=== PATIENT | female | born 1965 | race Caucasian/White ===

== ENCOUNTER 2016-06-23 08:10 | Outpatient (CLI) ==
[2014-01-02 13:27] VITALS: BMI 36.8
[2016-06-23 09:10] LABS: CREATININE 0.76 mg/dL (0.60-1.30)
--- NOTE | 2016-06-24 09:31 | MRI ---
EXAM: Lumbar spine MRI with and without intravenous contrast. HISTORY: Lumbar disc disease. COMPARISON: Lumbar spine radiographs 06/10/2011 and lumbar spine MRI 03/09/2011. TECHNIQUE: Multiplanar, multisequence MR images were acquired of the lumbar spine before and after administration of intravenous contrast. FINDINGS: Five lumbar-type vertebra are present. There is mild accentuation of the usual lumbar lo rdosis and there is 1.5 mm retrolisthesis of L2 on L3, L4 on L5 and 1.0 mm anterolisthesis of L5 on S1. The pars interarticularis are not well seen and there are probable bilateral L5 pars defects. The lumbar vertebra are normal in height and intrinsic bone marrow signal. Small ventral and latera l osteophytes are present in the lumbar spine and there are benign intraosseous hemangiomas at L2 an d L5. There is disc desiccation at L4-5 and L5-S1. Conus medullaris ends at L1-2 and has normal si gnal intensity. There is no abnormal leptomeningeal contrast enhancement. The visualized liver, spleen and kidneys are unremarkable. There are no paravertebral masses. There is mild atrophy of the inferior right psoas muscle unchanged from previously. Metallic artifact is present in the right retroperitoneum and along the right psoas muscle suggestive of a previous righ t lymph node dissection. T12-L1: The intervertebral disc is normal. L1-2: There is minor disc bulge with a small central enhancing annular fissure. L2-3: There is a minor disc bulge and a small central enhancing annular fissure. Mild bilateral fa cet hypertrophy is present. There is no central canal stenosis or foraminal stenosis. L3-4: There is a minor disc bulge that is asymmetric to the left with small right far lateral, cent ral and left lateral and far lateral enhancing annular fissures. There is mild bilateral facet hype rtrophy and mild left neural foraminal stenosis which is new compared to previously. L4-5: There is a minor disc bulge with a central and left paracentral enhancing annular fissure. T he small left paracentral disc protrusion noted previously is no longer identified. There is mild bi lateral hypertrophic facet arthropathy and ligamentum flavum hypertrophy. There is no central canal stenosis or foraminal stenosis. L5-S1: There is mild disc bulge that is asymmetric to the left with a tiny central disc protrusion and small central enhancing annular fissure. There is no central canal stenosis. Minor left neural foraminal stenosis is present. IMPRESSION: 1. Minor lumbar degenerative spondylosis without central canal stenosis. 2. 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 3. Tiny central disc protrusion and enhancing annular fissure L5-S1.
== END 2016-06-23 08:11 | disposition home or self-care (01) ==
LOC: RAD 08:10
PROVIDERS: ATTEND Pain Medicine Interventional Pain Medicine
DX: M51.16 Intervertebral disc disorders with radiculopathy, lumbar region (principal)
CPT/HCPCS: 36415; 82565

== ENCOUNTER 2016-09-22 08:49 | Outpatient (CLI) ==
[2014-01-02 13:27] VITALS: BMI 36.8
--- NOTE | 2016-09-24 09:42 | HOLTER ---
PATIENT INFORMATION AND COMMENTS Indications: PALPITATIONS __ Patient Medications: FLEXORIL, HYDROCODONE, RANITINE, PAMELOR, OMEPRAZOLE __ Pre-procedure Summary: Protocol: Standard Heart Rate Started: 09/22/16908 Minimum: 79 BPM Weight: 216 LBS Ended: 09/23/16904 Maximum: 150 BPM Height: 65" Duration: 24 HOURS Average: 112 _ INTERPRETATIONS/OBSERVATIONS: 1. BASIC RHYTHM: SINUS RATE 80/MINUTE TO 140/MINUTE, AVERAGE 110/MINUTE (MOSTLY SINUS TACHYCARDIA) 2. FEW PAC'S AND RARE PVC'S 3. ONE RUN OF 4 BEAT SUPRAVENTRICULAR TACHYCARDIA 4. NO ST-T WAVE CHANGES FROM BASELINE 5. NO CORRELATION WITH ACTIVITY LOG MTDD
== END 2016-09-22 08:50 | disposition home or self-care (01) ==
LOC: CAR 08:49
PROVIDERS: ATTEND Family Medicine
DX: R00.2 Palpitations (principal)
CPT/HCPCS: 93005; 93010; 93224

== ENCOUNTER 2017-01-22 18:58 | Emergency (ER) ==
[2017-01-22 19:05] VITALS: BP 130/83; TEMP 98.7; BMI 37.8
--- NOTE | 2017-01-22 19:59 | DI ---
EXAM: Right knee, four views. HISTORY: Right knee pain. COMPARISON: None. FINDINGS: AP , oblique, sunrise and lateral views of the right knee. There are no acute or healin g fractures. There are no lytic or blastic lesions. There is no joint effusion. Soft tissues are normal. No significant degenerative changes are seen. IMPRESSION: Normal right knee.
--- NOTE | 2017-01-22 20:00 | DI ---
EXAM: Left wrist, three view. HISTORY: Left wrist pain. Fall. COMPARISON: None. FINDINGS: AP, lateral oblique views of the left wrist. There is a well corticated fragment bone dis will to the ulnar styloid. This does not have the typical appearance of a fracture. There are no acu te or healing fractures. There are no lytic or blastic lesions. Soft tissues are normal. Bone mine ralization is normal. No significant degenerative changes. IMPRESSION: Probable old fracture fragment or unfused apophysis distal to the ulnar styloid. No de finite acute fractures are seen.
--- NOTE | 2017-01-22 20:04 | CT ---
EXAM: CT of the chest without contrast. HISTORY: Fall. Pain. PROCEDURE: Contiguous axial CT images of the chest without contrast with multiplanar and 3-D reform ats. FINDINGS: The heart is within normal limits in size. The thoracic aorta is within normal limits in diameter. The mediastinum is normal in appearance. There is minimal right middle lobe and lingular atelectasis. No pneumothorax. There is a calcified granuloma in the left lower lobe. There are gal lstones and/or sludge in the gallbladder. The gallbladder is within normal limits in size. The adr enal glands and visualized portion of the liver are normal in appearance. There are anterior wedging deformities of the T7 and T8 vertebral bodies with up to 25% loss of vertebral body height which ap pear chronic. Impression: Anterior wedging deformities of the T7 and T8 vertebral bodies with up to 25% loss of v ertebral body height which appear chronic. Recommend correlation with physical exam. Minimal right middle lobe and lingular atelectasis. Cholelithiasis and/or gallbladder sludge as described.
[2017-01-22] MEDS ORDERED: TYLENOL #3 TAB PO STA (20:08)
--- NOTE | 2017-01-22 20:11 | ED.PDOC ---
General ED Provider: Dr. TAYO ALLISON-ER Chief Complaint: Knee Pain/Injury Stated Complaint: i fell and hurt my ribs and my wriswt and my knee Time Seen by Physician: 19:05 Mode of Arrival: Wheelchair Information Source: Patient, Family Exam Limitations: No limitations Primary Care Provider: TAYO ALLISON Nursing and Triage Documentation Reviewed and Agree: Yes Trauma/Injury Complaint Exam - Trauma Complaint/Exam Location of Pain or Injury: Reports: RLE Mechanism of Injury: Reports: Fall Symptoms Are: Still present Timing of Treatment: Immediate Initial Severity: Mild Current Severity: Mild Character: Reports: Pressure Aggravating: Reports: Movement, Weight-bearing, Ambulation, Palpation, Deep breathing, Coughing Alleviating: Reports: None Associated Signs and Symptoms: Reports: Bruising, Swelling : No Penetrating Injury Risk Factors: Reports: None Glascow Coma Scale (see protocol): 15 Compartment Syndrome Risk Factors: Present: Pain. Absent: Paralysis, Pallor, Pulselessness, Paresthesias Trauma Findings: Absent: [place] eyes, Hemotympanum, Nasal deformity, Dental tenderness, Dental injury, Dental malocclusion, Neck tenderness, Neck spasm, SubQ Air, Crepitus, Airway obstructed, Trachea displaced, Labored respirations, Decreased breath sounds, Muffled heart sounds, Weak pulses, Absent pulses, Abdominal distention, Pelvic tenderness, Pelvic instability, Perineal blood, Meatal blood, Abnormal rectal tone, Prostate pos. abnormal, Heme positive, Gross blood, Back tenderness, Back malalignment, Limited ROM, Agitated, Uncooperative Skin Findings: Present: Tenderness, Swelling, Contusion Differential Diagnoses: Abrasion, Contusions, Fracture Review of Systems - Review Of Systems Constitutional: Reports: No symptoms Eyes: Reports: No symptoms Ears, Nose, Mouth, Throat: Reports: No symptoms Respiratory: Reports: No symptoms Cardiac: Reports: No symptoms GI: Reports: No symptoms : Reports: No symptoms Musculoskeletal: Reports: Muscle pain Skin: Reports: No symptoms Neurological: Reports: No symptoms Endocrine: Reports: No symptoms Hematologic/Lymphatic: Reports: No symptoms All Other Systems: Reviewed and Negative Past Medical History - Past Medical History Previously Healthy: Yes Endocrine: Reports: Unknown Cardiovascular: Reports: Unknown Respiratory: Reports: Unknown Hematological: Reports: Unknown Gastrointestinal: Reports: Unknown Genitourinary: Reports: Unknown Neuro/Psych: Reports: Unknown Musculoskeletal: Reports: Unknown Cancer: Reports: Unknown Last Menstrual Period: n/a - Surgical History General Surgical History: Reports: Unknown - Family History Family History: Reports: Unknown - Social History Smoking Status: Never smoker Hx Substance Use: No Alcohol Screening: Occasionally Physical Exam - Physical Exam Appearance: Well-appearing, No pain distress, Well-nourished Pain Distress: Mild Eyes: ZULEYMA, EOMI, Conjunctiva clear ENT: Ears normal, Nose normal, Oropharynx normal Neck: Supple Respiratory: Airway patent, Breath sounds clear, Breath sounds equal, Respirations nonlabored Cardiovascular: RRR, Pulses normal, No rub, No murmur GI/: Soft, Nontender, No masses, Bowel sounds normal, No Organomegaly Musculoskeletal: Limited ROM Skin: Warm, Dry, Normal color Neurological: Sensation intact, Motor intact, Reflexes intact, Cranial nerves intact, Alert, Oriented Psychiatric: Affect appropriate Interpretation - Radiology Interpretation Radiology Interpretation By: Radiologist Radiology Results: Negative Critical Care Note - Critical Care Note Total Time (mins): 0 Course - Course Orders, Labs, Meds: Orders Category Date Time Status Ice Pack [ED APPLY ICE AFFECTED AREA] .ONCE EMERGENCY 01/22/17 18:59 Active Acetaminophen with Codeine [Tylenol #3 Tab] MEDS 01/22/17 20:08 Discontinued 1 tab PO ONCE STA CT CHEST W/O CONTRAST Stat RADS 01/22/17 19:05 Completed KNEE, RIGHT 4 VIEWS Stat RADS 01/22/17 18:58 Completed WRIST, LEFT 3 VIEWS Stat RADS 01/22/17 19:05 Completed Medications Discontinued Medications Generic Name Dose Route Start Last Admin Trade Name Freq PRN Reason Stop Dose Admin Acetaminophen/Codeine Phosphate 1 tab 01/22/17 20:08 Tylenol #3 Tab PO 01/22/17 20:09 ONCE STA Vital Signs: Temp Pulse Resp BP Pulse Ox 01/22/17 19:01 98.7 F 107 H 20 130/83 97 Departure - Departure Time of Disposition: 20:12 Disposition: HOME SELF-CARE Discharge Problem: Injury of knee Instructions: Knee Pain (ED) Condition: Good Pt referred to PMD for follow-up: Yes Additional Instructions: tylenol #3 q 6hrs prn pain #10--ice for 24hrs--f/u pcp prn Allergies/Adverse Reactions: Allergies NSAIDS (Non-Steroidal Anti-Inflamma Adverse Reaction (Verified 01/02/14 13:29) vancomycin Adverse Reaction (Verified 01/02/14 13:29) Home Medications: Ambulatory Orders Cyclobenzaprine HCl [Cyclobenzaprine HCl] 10 mg PO BEDTIME 01/02/14 Hydrocodone Bit/Acetaminophen [[place] 7.5-325] 1 tab PO BID 01/02/14 Pantoprazole Sodium [Pantoprazole Sodium] 40 mg PO DAILY 01/02/14 Disposition Discussed With: Patient, Family
== END 2017-01-22 20:41 | disposition home or self-care (01) ==
LOC: ED 18:58
DX: M25.561 Pain in right knee (principal); M25.532 Pain in left wrist; S29.9XXA Unspecified injury of thorax, initial encounter; W19.XXXA Unspecified fall, initial encounter
CPT/HCPCS: 99282